=== PATIENT | male | born 1975 | race American Indian/Alaskan Native ===

== ENCOUNTER 2021-05-05 14:07 | Emergency (ER) | payer SELFPAY ==
[2021-05-05] MEDS ORDERED: HYDROcodone/ACETAMINOPHEN 10-325MG TAB PO ONE (15:05)
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
[2021-05-05 15:46] LABS: BUN/Creatinine Ratio 11; Blood Urea Nitrogen 11 mg/dL (9-20); Calcium 9.2 mg/dL (8.4-10.2); Hemolysis Index 16
[2021-05-05 16:59] VITALS: BP 145/98
[2021-05-05 17:07] LABS: Basophils # (Auto) 0.1 K/mm3 (0.0-0.1); Eosinophils # (Auto) 0.1 K/mm3 (0.0-0.4); Eosinophils % (Auto) 1.2 % (0.0-4.3); Hemoglobin 16.4 gm/dl (11.8-15.2); Lymphocytes # (Auto) 3.4 K/mm3 (1.2-5.4); Lymphocytes % (Auto) 39.7 % (13.4-35.0); Mean Corpuscular HGB Conc 34 % (32-34); Mean Corpuscular Volume 88 fl (84-94); Monocytes # (Auto) 0.8 K/mm3 (0.0-0.8); Monocytes % (Auto) 9.9 % (0.0-7.3); Platelet Count 323 K/mm3 (140-440); Red Blood Count 5.45 M/mm3 (3.65-5.03)
[2021-05-05 17:12] LABS: Red Cell Distribution Width 14.7 % (13.2-15.2)
== END 2021-05-05 18:08 | disposition home or self-care (01) ==
LOC: ED 14:07
DX: K05.10 Chronic gingivitis, plaque induced (principal); K02.9 Dental caries, unspecified; R51.9 Headache, unspecified; F17.200 Nicotine dependence, unspecified, uncomplicated; F12.90 Cannabis use, unspecified, uncomplicated
CPT/HCPCS: 36415; 70450; 80048; 85025; 99284

== ENCOUNTER 2022-02-22 03:01 | Emergency (ER) | payer SELFPAY ==
[2022-02-22 05:42] LABS: Mucus,Urine FEW /HPF
[2022-02-22 05:49] LABS: Color,Urine AMBER (Yellow)
[2022-02-22 05:50] LABS: Blood,Urine Negative (Negative)
[2022-02-22 05:51] LABS: Bilirubin,Urine 1+ (Negative); Ictotest,Urine Negative (Negative)
[2022-02-22] MEDS ORDERED: ONDANSETRON 4 MG/2 ML INJ IV ONE (06:22)
[2022-02-22] MEDS ORDERED: MORPHINE 4 MG/1 ML INJ IV ONE (06:22)
--- NOTE | 2022-02-22 06:28 | Emergency Department Report ---
ED Male HPI - General Chief complaint: Urogenital-Male Stated complaint: TESTICULAR PAIN Time Seen by Provider: 02/22/22 06:10 Source: patient, EMS Mode of arrival: Stretcher Limitations: No Limitations - History of Present Illness Initial comments: Please note that this physician's shift time began at 6 AM this morning (02/22/2022) and the patient was seen at 6 AM this morning by me, upon my arrival to my shift. Per previous outgoing ER physician, , he had placed an order in for the patient to go undergo a testicular ultrasound. This was ordered by him for the patient @ 05:45am. Upon my arrival at the start of my shift at 06:00am, ,the ultrasound had not been performed. prior to my arrival. 46-year-old male with self-reported history of "problem with my left testicle in 2008" (patient states he underwent surgery for his left testicle but does not recall what the surgery was for) presents for evaluation of left testicular pain. Patient states his pain began 1 day ago, on February 21, 2022 when he awoke that morning. He states time of onset was 8 AM. Pain was initially constant throbbing and radiating up into his chest. He states now the pain is intermittent. No nausea vomiting fevers or chills. He denies any testicular trauma. No penile lesions or discharge. No UTI symptoms. No abdominal pain. He did not take any pain medication for symptoms. Aggravators for his pain include movement. There are no alleviators. Pain currently 10 a 10 MD Complaint: testicle pain, testicle swelling, genital injury -: Sudden, days(s) (01 day ago, at 8:00am) Location: left testicle Radiation: chest Severity: severe Severity scale (0 -10): 10 Quality: dull, stabbing, other (pressure) Consistency: constant, intermittent Improves with: none Worsens with: palpation, movement denies other symptoms - Related Data Sexually active: Yes Previous Rx's Medication Instructions Recorded Last Taken Type Benzocaine [Orajel Liquid 20%] 1 ml MM Q8H PRN #1 bottle 05/05/21 Unknown Rx Chlorhexidine Mouthwash [Peridex] 15 ml MM BID #1 bottle 05/05/21 Unknown Rx Clindamycin [Clindamycin CAP] 300 mg PO Q8H #21 cap 05/05/21 Unknown Rx Naproxen 500 mg PO Q12H PRN #12 tablet 05/05/21 Unknown Rx Ibuprofen [Motrin 800 MG tab] 800 mg PO Q8HR PRN 7 Days #21 02/22/22 Unknown Rx tablet Potassium Chloride 10 meq PO DAILY 10 Days #10 meq 02/22/22 Unknown Rx levoFLOXacin [Levaquin TAB] 500 mg PO QDAY 9 Days #9 tablet 02/22/22 Unknown Rx traMADoL [Ultram 50 MG tab] 50 mg PO Q6HR PRN #8 tablet 02/22/22 Unknown Rx Allergies Allergy/AdvReac Type Severity Reaction Status Date / Time No Known Allergies Allergy Verified 05/05/21 15:07 ED Review of Systems ROS: Stated complaint: TESTICULAR PAIN Other details as noted in HPI Constitutional: no symptoms reported Eyes: denies: eye pain, eye discharge, vision change ENT: denies: ear pain, throat pain, hearing loss Respiratory: denies: see HPI, cough, orthopnea, shortness of breath, SOB with exertion, SOB at rest, stridor, wheezing Cardiovascular: denies: chest pain, palpitations, dyspnea on exertion, orthopnea, edema, syncope, paroxysmal nocturnal dyspnea Endocrine: denies: see HPI, excessive sweating, flushing, intolerance to cold, intolerance to heat, increased hunger, increased thirst, increased urine, unexplained weight gain, unexplained weight loss Gastrointestinal: denies: abdominal pain, nausea, vomiting, diarrhea, constipation, hematemesis, melena, hematochezia Genitourinary: as per HPI, testicular pain. denies: urgency, dysuria, frequency, hematuria, discharge, testicular mass, other Musculoskeletal: denies: as per HPI, back pain, joint swelling, arthralgia, myalgia Skin: denies: rash, lesions, change in color, change in hair/nails, pruritus Neurological: denies: headache, weakness, numbness, paresthesias, confusion, abnormal gait Psychiatric: denies: anxiety, depression, auditory hallucinations, visual hallucinations, homicidal thoughts, suicidal thoughts Hematological/Lymphatic: denies: easy bleeding, easy bruising, swollen glands ED Past Medical Hx - Past Medical History Previous Medical History?: No - Surgical History Past Surgical History?: Yes Additional Surgical History: Left Testicular Torsion - Social History Smoking Status: Current Every Day Smoker Substance Use Type: Marijuana - Medications Home Medications: Home Medications Medication Instructions Recorded Confirmed Last Taken Type Benzocaine [Orajel Liquid 20%] 1 ml MM Q8H PRN #1 bottle 05/05/21 Unknown Rx Chlorhexidine Mouthwash [Peridex] 15 ml MM BID #1 bottle 05/05/21 Unknown Rx Clindamycin [Clindamycin CAP] 300 mg PO Q8H #21 cap 05/05/21 Unknown Rx Naproxen 500 mg PO Q12H PRN #12 tablet 05/05/21 Unknown Rx Ibuprofen [Motrin 800 MG tab] 800 mg PO Q8HR PRN 7 Days #21 02/22/22 Unknown Rx tablet Potassium Chloride 10 meq PO DAILY 10 Days #10 meq 02/22/22 Unknown Rx levoFLOXacin [Levaquin TAB] 500 mg PO QDAY 9 Days #9 tablet 02/22/22 Unknown Rx traMADoL [Ultram 50 MG tab] 50 mg PO Q6HR PRN #8 tablet 02/22/22 Unknown Rx ED Physical Exam - General Limitations: No Limitations General appearance: alert, in distress, other (uncomfortable appearing, secondary to pain) - ENT ENT exam: Present: normal exam, normal orophraynx, mucous membranes moist, normal external ear exam - Neck Neck exam: Present: normal inspection, tenderness, full ROM. Absent: meningismus, lymphadenopathy, thyromegaly - Respiratory Respiratory exam: Present: normal lung sounds bilaterally. Absent: respiratory distress, wheezes, rales, rhonchi, stridor, chest wall tenderness, accessory muscle use, decreased breath sounds, prolonged expiratory, other - Cardiovascular Cardiovascular Exam: Present: regular rate, normal rhythm, normal heart sounds. Absent: bradycardia, tachycardia, irregular rhythm, systolic murmur, diastolic murmur, rubs, gallop, clicks, JVD, S3, S4, other - GI/Abdominal GI/Abdominal exam: Present: soft, normal bowel sounds. Absent: distended, tenderness, guarding, rebound, rigid, hyperactive bowel sounds, hypoactive bowel sounds, organomegaly, mass, bruit, pulsatile mass - Rectal Rectal exam: Present: deferred - exam: Present: testicular tenderness (elevation of L testicle when compared to R testicule), scrotal swelling, circumcision. Absent: urethral discharge, vertical testicular lie External exam: Present: other (feed weigher for exam: [place]). Absent: erythema, swelling, lesions, lacerations, ecchymosis - Extremities Exam Extremities exam: Present: normal inspection, full ROM, normal capillary refill - Back Exam Back exam: Present: normal inspection, full ROM. Absent: tenderness, CVA tenderness (L), muscle spasm, paraspinal tenderness - Neurological Exam Neurological exam: Present: alert, oriented X3, CN II-XII intact, normal gait, motor sensory deficit - Psychiatric Psychiatric exam: Present: normal affect, normal mood. Absent: depressed, agitated, anxious, flat affect, manic, homicidal ideation - Skin Skin exam: Present: warm, dry, intact, normal color, rash. Absent: cyanosis, diaphoretic, erythema, urticaria, vesicles, pallor, abrasion, ecchymosis ED Course Vital Signs 02/22/22 02/22/22 02/22/22 03:01 04:04 04:06 Temperature 98.1 F Pulse Rate 100 H Respiratory 18 Rate Blood Pressure 148/97 Blood Pressure [Left] O2 Sat by Pulse 100 98 98 Oximetry 02/22/22 02/22/22 08:16 10:31 Temperature 98.2 F 98.6 F Pulse Rate 82 89 Respiratory 20 18 Rate Blood Pressure Blood Pressure 121/83 124/78 [Left] O2 Sat by Pulse 98 99 Oximetry - Reevaluation(s) Reevaluation #1: 02/22/22 06:32 pt in ultrasound Reevaluation #2: 02/22/22 07:58 Pt appears comfortable. Denies worsening pain or new evolving symptms. VSS. Continues to await administration of analgesics from hourly sales staff. Pt updated concerning ultrasound findings and plan to d/c on oral abx for continued treatment of acute on chronic orchitis ED Medical Decision Making - Lab Data Result diagrams: 02/22/22 06:33 02/22/22 06:33 - Radiology Data Radiology results: report reviewed - Medical Decision Making 46-year-old male with a self-reported history of left testicular torsion presents for evaluation of left testicular pain that began 1 day ago. Vital signs stable. Labs reviewed. Patient given potassium chloride for repletion. Ultrasound findings reviewed. Findings were discussed with reading radiologist and subsequently with the patient himself. Patient given analgesics here with good effect. He was given intramuscular antibiotics and subsequently p.o. Patient will be discharged to home on Levaquin 500 mg by mouth daily for 9 days as he was given the first dose of Levaquin here in the emergency department. He was given a phone number for referral to a primary care doctor. Advised to abstain from sexual activity. No further emergent work-up warranted. Patient given strict verbal and written return precautions. He verbalized understanding and agreement the plan of care. Critical care attestation.: If time is entered above; I have spent that time in minutes in the direct care of this critically ill patient, excluding procedure time. ED Disposition Clinical Impression: Orchitis, Hypokalemia Disposition: HOME / SELF CARE / HOMELESS Is pt being admited?: No Condition: Stable Instructions: Hypokalemia, Orchitis Additional Instructions: FOllow up with a primary care doctor within 2-3 business days for immediate reeevaluation. This is very important. Abstain from sexual intercourse for the next 7-10 days. You are being placed on oral antibiotics. Take Levaquin 500 mg by mouth once daily for the next 10 days. You were given a dose here in the emergency department and therefore should not start your prescription until tomorrow, February 23, 2022. Additionally today, your potassium level was found to be slightly lowered and its 3.2. Normal potassium level is 3.5-5.0. Because the antibiotic you are on may lower your potassium level, you will be placed on oral potassium tablets to help improve your potassium level and to help decrease the risk of this number lowering. Please take potassium 10 meq equivalent's which is 1 tablet, by mouth, daily for the next 10 days. This is very important Take ibuprofen as needed for pain. You may take acetaminophen and alternate this with ibuprofen for additional pain management. If your pain is not improved you may take tramadol for severe or breakthrough pain. Return to the nearest emergency department soon as possible if you develop severe worsening pain, abdominal pain, vomiting, inability tolerate liquids or solids, any fever of 100.4 Fahrenheit or higher, or if any other new worrisome symptoms develop. Prescriptions: levoFLOXacin [Levaquin TAB] 500 mg PO QDAY 9 Days #9 tablet Ibuprofen [Motrin 800 MG tab] 800 mg PO Q8HR PRN 7 Days #21 tablet PRN Reason: Pain, Moderate (4-6) Potassium Chloride 10 meq PO DAILY 10 Days #10 meq traMADoL [Ultram 50 MG tab] 50 mg PO Q6HR PRN #8 tablet PRN Reason: Pain Referrals: BRODIE BARRAZA MD [Staff Physician] - 3-5 Days
--- NOTE | 2022-02-22 07:04 | Ultrasound Report ---
ULTRASOUND SCROTUM INDICATION / CLINICAL INFORMATION: Left testicular pain. COMPARISON: None available. FINDINGS -- RIGHT: TESTIS: Size = 3.6 x 2 x 2.6 cm. - Appearance: Diffusely heterogeneous with areas of microcalcification. - Cyst / Mass: None. - Color Doppler Flow: Vascularity appears increased. EPIDIDYMIS: No significant abnormality. HYDROCELE: None. VARICOCELE: None demonstrated. FINDINGS -- LEFT: TESTIS: Size = 4 x 2.6 x 3.5 cm. - Appearance: Mild heterogeneity with a few small areas of microcalcification. - Cyst / Mass: None. - Color Doppler Flow: Vascularity appears increased. EPIDIDYMIS: No significant abnormality. HYDROCELE: None. VARICOCELE: None demonstrated. ADDITIONAL FINDINGS: None. IMPRESSION: 1. Diffuse heterogeneity of the right testicle without discrete abnormality. 2. Mild heterogeneity of the left testicle with mild increased vascularity. 3. Chronic with superimposed acute sinusitis is suspected. Follow-up ultrasound is recommended. Signer Name: Dalton Dill MD Signed: 02/22/2022 7:00 AM Workstation Name: [email or web address]
[2022-02-22] MEDS ORDERED: KETOROLAC 30 MG/1 ML INJ IV ONE (07:13)
[2022-02-22] MEDS ORDERED: LIDOCAINE-MPF (1%) 10 MG/1 ML VIAL 5 ML INFILTRATI ONE (07:17)
[2022-02-22 08:27] LABS: Alanine Aminotransferase 16 units/L (7-56); Albumin 3.9 g/dL (3.9-5); BUN/Creatinine Ratio 8; Blood Urea Nitrogen 7 mg/dL (9-20); Calcium 8.9 mg/dL (8.4-10.2); Hemolysis Index 1
[2022-02-22] MEDS ORDERED: POTASSIUM CHLORIDE ER 20 MEQ TAB PO ONE (08:36)
[2022-02-22 09:55] LABS: Basophils # (Auto) 0.1 K/mm3 (0.0-0.1); Basophils % (Auto) 0.8 % (0.0-1.8); Eosinophils % (Auto) 0.1 % (0.0-4.3); Hematocrit 44.4 % (35.5-45.6); Hemoglobin 14.7 gm/dl (11.8-15.2); Lymphocytes # (Auto) 2.1 K/mm3 (1.2-5.4); Lymphocytes % (Auto) 16.5 % (13.4-35.0); Mean Corpuscular HGB Conc 33 % (32-34); Mean Corpuscular Volume 87 fl (84-94); Monocytes # (Auto) 1.1 K/mm3 (0.0-0.8); Monocytes % (Auto) 8.7 % (0.0-7.3); Platelet Count 212 K/mm3 (140-440); Red Blood Count 5.12 M/mm3 (3.65-5.03); Red Cell Distribution Width 14.1 % (13.2-15.2)
[2022-02-22] MEDS ORDERED: levoFLOXacin 500 MG TAB PO ONE (10:20)
[2022-02-22 10:32] VITALS: BP 124/78
== END 2022-02-22 14:24 | disposition home or self-care (01) ==
LOC: ED 03:01
DX: N45.2 Orchitis (principal); E87.6 Hypokalemia; F17.200 Nicotine dependence, unspecified, uncomplicated
CPT/HCPCS: 36415; 80053; 81001; 85025; 87086; 87591; 93975; 96372; 96374; 96375; 99284; J0696; J1885; J2270; J2405; J3490